=== PATIENT | female | born 1955 | race Caucasian/White ===

== ENCOUNTER 2021-11-08 09:48 | Emergency (ER) | payer OTHER ==
[~2021-11-08] VITALS: Ht 167.6 cm; Wt 80.3 kg
[2021-11-08] MEDS ORDERED: IV NORMAL SALINE 1,000ML 1,000 ML IV SCH (10:15)
--- NOTE | 2021-11-08 10:16 | PHYS DOC ---
Past History Past Surgical History: Cholecystectomy, Tubal ligation General Adult EDM: Chief Complaint: ABDOMINAL PAIN HPI: HPI: Patient is a 66-year-old female who presents to the emergency department today for right lower quadrant pain that started 4 days ago. Patient rates her pain 3 out of 10. It does not radiate. No treatment prior to arrival. Patient describes the pain as a constant pain. She reports it is worse with stretching of her abdomen and deep inspiration. She reports that she has not had a normal bowel movement for 4 days and has had small bowel movements daily. Patient is also reporting urinary frequency but is unsure if she is having frequency due to her increase in fluid intake. Patient denies dysuria, fevers, blood in her stools or vomit, nausea, vomiting, diarrhea. She has a history of hypertension, hyperlipidemia, tubal ligation and cholecystectomy. Review of Systems: Review of Systems: Constitutional: See HPI GI: See HPI : HPI Musculoskeletal: Denies flank pain Allergies: Allergies: Allergies Coded Allergies Type Severity Reaction Last Updated Verified No Known Drug Allergies 11/08/21 No Physical Exam: PE: Constitutional: Well developed, well nourished, no acute distress, non-toxic appearance. [] HENT: Normocephalic, atraumatic, bilateral external ears normal, oropharynx moist, no oral exudates, nose normal. [] Eyes: PERRL, EOMI, conjunctiva normal, no discharge. [] Neck: Normal range of motion, no tenderness, supple, no stridor. [] Cardiovascular:Heart rate regular rhythm, no murmur [] Lungs & Thorax: Bilateral breath sounds clear to auscultation [] Abdomen: Bowel sounds normal, soft, right lower quadrant tenderness with palpation and suprapubic tenderness with palpation, no abdominal guarding or rigidity, negative Garvin sign, no masses, negative Rovsing sign, no pulsatile masses. [] Skin: Warm, dry, no erythema, no rash. [] Back: No tenderness, no CVA tenderness. [] Extremities: No tenderness, no cyanosis, no clubbing, ROM intact, no edema. [] Neurologic: Alert and oriented X 3, normal motor function, normal sensory function, no focal deficits noted. [] Psychologic: Affect normal, judgement normal, mood normal. [] Current Patient Data: Labs: Laboratory Tests Test 11/08/21 10:15 11/08/21 10:20 Urine Collection Type Unknown Urine Color Colorless Urine Clarity Clear Urine pH 7.0 Urine Specific [place] 1.015 Urine Protein Neg Urine Glucose (UA) Neg mg/dL Urine Ketones (Stick) Neg mg/dL Urine Blood Neg Urine Nitrite Neg Urine Bilirubin Neg Urine Urobilinogen Dipstick 0.2 mg/dL Urine Leukocyte Esterase Trace Urine RBC 1-2 /HPF Urine WBC 1-4 /HPF Urine Squamous Epithelial Cells Many /LPF Urine Transitional Epithelial Cells Few /LPF Urine Bacteria 0 /HPF White Blood Count 6.1 x10^3/uL Red Blood Count 4.51 x10^6/uL Hemoglobin 12.9 g/dL Hematocrit 37.4 % Mean Corpuscular Volume 83 fL Mean Corpuscular Hemoglobin 29 pg Mean Corpuscular Hemoglobin Concent 34 g/dL Red Cell Distribution Width 13.9 % Platelet Count 266 x10^3/uL Neutrophils (%) (Auto) 52 % Lymphocytes (%) (Auto) 31 % Monocytes (%) (Auto) 13 % Eosinophils (%) (Auto) 3 % Basophils (%) (Auto) 1 % Neutrophils # (Auto) 3.2 x10^3uL Lymphocytes # (Auto) 1.9 x10^3/uL Monocytes # (Auto) 0.8 x10^3/uL Eosinophils # (Auto) 0.2 x10^3/uL Basophils # (Auto) 0.1 x10^3/uL Sodium Level 140 mmol/L Potassium Level 3.8 mmol/L Chloride Level 104 mmol/L Carbon Dioxide Level 26 mmol/L Anion Gap 10 Blood Urea Nitrogen 15 mg/dL Creatinine 0.8 mg/dL Estimated GFR (Cockcroft-Gault) 72.2 BUN/Creatinine Ratio 19 Glucose Level 84 mg/dL Calcium Level 9.2 mg/dL Total Bilirubin 0.6 mg/dL Aspartate Amino Transf (AST/SGOT) 25 U/L Alanine Aminotransferase (ALT/SGPT) 46 U/L Alkaline Phosphatase 79 U/L Total Protein 8.2 g/dL Albumin 4.2 g/dL Albumin/Globulin Ratio 1.1 Lipase 135 U/L Current Medications Medications (Trade) Dose Ordered Sig/Alexandra Route PRN Reason Start Time Stop Time Status Last Admin Dose Admin Sodium Chloride 1,000 ml @ 1,000 mls/hr Q1H IV 11/08/21 10:15 11/08/21 11:14 DC 11/08/21 10:15 Fentanyl Citrate (Fentanyl 2ml Vial) 50 mcg 1X ONCE IVP 11/08/21 10:30 11/08/21 10:31 DC Iohexol (Omnipaque 300 Mg/ml) 75 ml 1X ONCE IV 11/08/21 10:30 11/08/21 10:31 DC 11/08/21 10:28 Info (Do NOT chart on this entry -- for MONITORING) 1 each PRN DAILY PRN MC SEE COMMENTS 11/08/21 10:30 11/10/21 10:29 Vital Signs: Vital Signs Date Time Temp Pulse Resp B/P (MAP) Pulse Ox O2 Delivery O2 Flow Rate FiO2 11/08/21 10:08 98.7 61 18 128/78 (95) 100 Room Air EKG: EKG: [] Radiology/Procedures: Radiology/Procedures: []PROCEDURE: CT ABD PELV W/ IV CONTRST ONLY PQRS Compliance Statement: One or more of the following individualized dose reduction techniques were utilized for this examination: 1. Automated exposure control 2. Adjustment of the mA and/or kV according to patient size 3. Use of iterative reconstruction technique CT ABDOMEN+PELVIS W Clinical Indication: Reason: rlq pain / Comparison: None. Technique: Helical CT imaging of the abdomen and pelvis is performed after 75 cc of Omnipaque 300 IV contrast. Oral contrast not administered. Findings: There is minimal atelectasis or scarring in the lung bases. Cardiac size is normal. Cholecystectomy. The liver, spleen, and adrenal glands are normal. There is no peripancreatic inflammation. There is heterogeneous fatty replacement of the pancreas head. The abdominal aorta is normal caliber. Kidneys enhance symmetrically, no hydronephrosis. 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 The stomach is unremarkable. There is no small bowel obstruction. The appendix is normal. There are a few diverticula of the proximal colon. No colon wall thickening is seen. There is no abdominal adenopathy or free fluid. The urinary bladder is distended, otherwise normal. The uterus is unremarkable. There is a 2 cm bilobed right adnexal cyst. There is no pelvic free fluid. Disc space narrowing and vacuum disc phenomenon of L4/L5. Partially sacralized left L5. IMPRESSION: 1. No acute abdominal or pelvic abnormality. The appendix is normal. 2. There is minimal proximal colon diverticulosis. 3. There is a 2 cm right adnexal cyst. Finding is abnormal in a female patient of this age but is probably benign. There is no pelvic free fluid. Recommend outpatient pelvic ultrasound. Electronically signed by: Etienne Wellington MD (11/08/2021 10:49 AM) [id number] DICTATED AND SIGNED BY: ETIENNE WELLINGTON MD DATE: 11/08/21 1038 CC: EMERGENCY,DEPARTMENT; VANNESSA CALDERON APRN; BUSHRA TAVARES DO, [facility] ~MTH0 0 Heart Score: C/O Chest Pain: N/A Risk Factors: Risk Factors: DM, Current or recent (<one month) smoker, HTN, HLP, family history of CAD, obesity. Risk Scores: Score 0 - 3: 2.5% MACE over next 6 weeks - Discharge Home Score 4 - 6: 20.3% MACE over next 6 weeks - Admit for Clinical Observation Score 7 - 10: 72.7% MACE over next 6 weeks - Early Invasive Strategies Course & Med Decision Making: Course & Med Decision Making Pertinent Labs and Imaging studies reviewed. (See chart for details) [] Patient was seen in the emergency department today for right lower quadrant pain with decreased bowel movements. Work-up in the ER consisted of blood work including lipase, urinalysis and CT imaging of abdomen and pelvis. Patient was treated with IV fluids and pain medication. Patient reports that her last normal bowel movement was 4 days ago when she has had small bowel movements daily and is concerned she may have a bowel obstruction. Patient does not have a history of bowel obstructions. She does have a history of tubal ligation and cholecystectomy. Patient refused pain medication in the emergency department. Blood work was unremarkable. Patient's urinalysis is positive for white blood cells and leukocytes, she will be treated with an antibiotic for urinary tract infection. Patient CT scan does show diverticulosis without diverticulitis, and a 2 cm right adnexal cyst the radiologist recommended outpatient pelvic ultrasound. I advised patient to take anti-inflammatory medications and follow- up with her primary care provider for an outpatient pelvic ultrasound if she continues to have pain. I discussed with patient all findings and diagnostic testing as well as the need to follow-up with PCP for further evaluation and treatment or return to the ER if any new or worsening symptoms. Strict return precautions were also discussed at length. Patient voiced understanding and agreement with the plan. Patient is hemodynamically stable at the time of disposition. Dragon Disclaimer: Dragon Disclaimer: This electronic medical record was generated, in whole or in part, using a voice recognition dictation system. Departure Departure: Impression: Primary Impression: Urinary tract infection Qualified Codes: N30.00 - Acute cystitis without hematuria Additional Impression: Ovarian cyst Qualified Codes: N83.201 - Unspecified ovarian cyst, right side Disposition: HOME / SELF CARE / HOMELESS Condition: GOOD Referrals: BUSHRA TAVARES DO, [facility] (PCP) Patient Instructions: Ovarian Cyst, [id number], Urinary Tract Infection Additional Instructions: You are seen in the emergency department today for abdominal pain. You were noted to have a urinary tract infection which will be treated with an antibiotic. Please start and finish it completely. Increase your fluids and avoid any bladder irritants like caffeine, sugary beverages or alcohol. As we discussed, you also have a 2 cm cyst on your right ovary. If you continue to have pain you will need follow-up with your primary care provider to have an outpatient pelvic ultrasound. Advise you to contact your primary care provider tomorrow to follow-up regarding your ER visit. Return to the emergency department if you develop worsening of your abdominal pain, vaginal bleeding, high fevers refractory to treatment, intractable nausea or vomiting, weakness, confusion. Scripts Cephalexin (KEFLEX) 500 Mg Capsule 1 CAP PO BID for infection for 7 Days, #14 CAP 0 Refills Prov: VANNESSA CALDERON APRN 11/08/21 VANNESSA CALDERON APRN Nov 08, 2021 10:16
[2021-11-08] MEDS ORDERED: CONTRAST GIVEN. MC PRN (10:30)
[2021-11-08] MEDS ORDERED: IOHEXOL 300 MG/ML 75 ML VIAL. IV ONE (10:30)
[2021-11-08 10:49] LABS: BASO # 0.1 x10^3/uL (0.0-0.2); BASO % 1 % (0-3); EOS # 0.2 x10^3/uL (0.0-0.7); EOS % 3 % (0-3); HEMATOCRIT 37.4 % (36.0-47.0); HEMOGLOBIN 12.9 g/dL (12.0-15.5); LYMPH # 1.9 x10^3/uL (1.0-4.8); LYMPH % 31 % (24-48); MEAN CORPUSCULAR HEMOGLOBIN 29 pg (25-35); MEAN CORPUSCULAR HGB CONC 34 g/dL (31-37); MEAN CORPUSCULAR VOLUME 83 fL (79-100); MONO # 0.8 x10^3/uL (0.0-1.1); MONO % 13 % (0-9); NEUT # 3.2 x10^3uL (1.8-7.7); NEUT % 52 % (31-73); PLATELET COUNT 266 x10^3/uL (140-400); RED BLOOD COUNT 4.51 x10^6/uL (3.50-5.40); RED CELL DISTRIBUTION WIDTH 13.9 % (11.5-14.5); WHITE BLOOD COUNT 6.1 x10^3/uL (4.0-11.0)
--- NOTE | 2021-11-08 10:52 | RAD ---
PQRS Compliance Statement: One or more of the following individualized dose reduction techniques were utilized for this examinat ion: 1. Automated exposure control 2. Adjustment of the mA and/or kV according to patient size 3. Use of iterative reconstruction technique CT ABDOMEN+PELVIS W Clinical Indication: Reason: rlq pain / Comparison: None. Technique: Helical CT imaging of the abdomen and pelvis is performed after 75 cc of Omnipaque 300 IV contrast. Oral contrast not administered. Findings: There is minimal atelectasis or scarring in the lung bases. Cardiac size is normal. Cholecystectomy. The liver, spleen, and adrenal glands are normal. There is no peripancreatic inflamm ation. There is heterogeneous fatty replacement of the pancreas head. The abdominal aorta is normal c aliber. Kidneys enhance symmetrically, no hydronephrosis. 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 The stomach is unremarkable. There is no small bowel obstruction. The appendix is normal. There are a few diverticula of the proximal colon. No colon wall thickening is seen. There is no abdominal adeno michael or free fluid. The urinary bladder is distended, otherwise normal. The uterus is unremarkable. There is a 2 cm bilob ed right adnexal cyst. There is no pelvic free fluid. Disc space narrowing and vacuum disc phenomenon of L4/L5. Partially sacralized left L5. IMPRESSION: 1. No acute abdominal or pelvic abnormality. The appendix is normal. 2. There is minimal proximal colon diverticulosis. 3. There is a 2 cm right adnexal cyst. Finding is abnormal in a female patient of this age but is pr obably benign. There is no pelvic free fluid. Recommend outpatient pelvic ultrasound. Electronically signed by: Etienne Wellington MD (11/08/2021 10:49 AM) [id number]
[2021-11-08 11:17] LABS: BACTERIA,URINE 0 /HPF (0-FEW); CLARITY,URINE CLEAR; COLOR,URINE COLORLESS; GLUCOSE,URINE NEG (NEG); NITRITE,URINE NEG (NEG); SQUAMOUS EPITHELIAL CELL,UR MANY /LPF; UROBILINOGEN,URINE 0.2 mg/dL (0.2 mg/dL)
[2021-11-08 11:18] LABS: CALCIUM 9.2 mg/dL (8.5-10.1); CREATININE 0.8 mg/dL (0.6-1.0); GFR 72.2; POTASSIUM 3.8 mmol/L (3.5-5.1)
[2021-11-08 11:22] LABS: ALBUMIN 4.2 g/dL (3.4-5.0); ALBUMIN/GLOBULIN RATIO 1.1 (1.0-1.7); TOTAL BILIRUBIN 0.6 mg/dL (0.2-1.0); TOTAL PROTEIN 8.2 g/dL (6.4-8.2)
[2021-11-08 11:25] VITALS: BP 116/76
[2021-11-08] MEDS ORDERED: CEPH500C PO (11:40)
== END 2021-11-08 12:10 | disposition home or self-care (01) ==
LOC: ER 09:48
DX: N30.00 Acute cystitis without hematuria (principal); N83.201 Unspecified ovarian cyst, right side; Z90.49 Acquired absence of other specified parts of digestive tract; Z98.51 Tubal ligation status
CPT/HCPCS: 36415; 74177; 80053; 81001; 83690; 85025; 87086; 96360; 99285; J7030; Q9967